=== PATIENT | male | born 1970 | race African-American/Black ===

== ENCOUNTER 2018-10-14 15:38 | Inpatient (IN) | payer OTHER ==
[2018-10-14 15:48] VITALS: BMI 26.7
--- NOTE | 2018-10-14 17:47 | HP ---
CIWA Score - Admission Criteria [facility] Guidelines: Admission for Medically Managed Detox: Requires at least one of the followin. CIWA greater than 12 2. Seizures within the past 24 hours 3. Delirium tremens within the past 24 hours 4. Hallucinations within the past 24 hours 5. Acute intervention needed for co occurring medical disorder 6. Acute intervention needed for co occurring psychiatric disorder 7. Severe withdrawal that cannot be handled at a lower level of care (continued vomiting, continued diarrhea, abnormal vital signs) requiring intravenous medication and/or fluids 8. Admission ROS S - HPI Chief Complaint: SEEKING REHAB SERVICES Allergies/Adverse Reactions: Allergies Allergy/AdvReac Type Severity Reaction Status Date / Time No Known Allergies Allergy Verified 10/14/18 17:39 History of Present Illness: 48 Y.O. MAN WITH A 20 YEAR HISTORY OF CRACK-COCAINE DEPENDENCE IS HERE SEEKING REHAB SERVICES. THIS IS HIS FIRST ADMISSION HERE BUT REPORTS HE COMPLETED REHAB 3 YEARS AGO AT ANOTHER FACILITY IN [place]. Exam Limitations: No Limitations - Ebola screening Have you traveled outside of the country in the last 21 days: No Have you had contact with anyone from an Ebola affected area: No Have you been sick,other than usual withdrawal symptoms: No Do you have a fever: No - Review of Systems Constitutional: Loss of Appetite, Unintentional Wgt. Loss EENT: reports: No Symptoms Reported Respiratory: reports: No Symptoms reported Cardiac: reports: No Symptoms Reported GI: reports: No Symptoms Reported : reports: No Symptoms Reported Musculoskeletal: reports: No Symptoms Reported Integumentary: reports: No Symptoms Reported Neuro: reports: No Symptoms reported Endocrine: reports: No Symptoms Reported Hematology: reports: Other (SICKLE CELL TRAIT) Psychiatric: reports: Orientated x3 Other Systems: Reviewed and Negative Patient History - Patient Medical History Hx Anemia: No (SICKLE CELL TRAIT ) Hx Asthma: Yes Hx Chronic Obstructive Pulmonary Disease (COPD): No Hx Cancer: No Hx Cardiac Disorders: No Hx Congestive Heart Failure: No Hx Hypertension: Yes (TAKES LISINOPRIL ) Hx Hypercholesterolemia: No Hx Pacemaker: No HX Cerebrovascular Accident: No Hx Seizures: No Hx Dementia: No Hx Diabetes: No Hx Gastrointestinal Disorders: No Hx Liver Disease: No Hx Genitourinary Disorders: No Hx Sexually Transmitted Disorders: No Hx Renal Disease (ESRD): No Hx Thyroid Disease: No Hx Human Immunodeficiency Virus (HIV): Yes (DX 2001) Hx Hepatitis C: Yes Hx Depression: No Hx Suicide Attempt: No Hx Bipolar Disorder: No Hx Schizophrenia: No - Patient Surgical History Past Surgical History: Yes Other Surgical History: W-1989 & 2011 Anesthesia Reaction: No - PPD History Previous Implant?: Yes Documented Results: Negative w/o proof PPD to be Administered?: Yes - Reproductive History Patient is a Female of Child Bearing Age (11 -55 yrs old): No - Smoking Cessation Smoking history: Current every day smoker Have you smoked in the past 12 months: Yes Aproximately how many cigarettes per day: 2 Initiated information on smoking cessation: Yes 'Breaking Loose' booklet given: 10/14/18 - Substance & Tx. History Hx Alcohol Use: No Hx Substance Use: Yes Substance Use Type: Cocaine Hx Substance Use Treatment: Yes (Rehab: 2 years ago ) - Substances Abused Crack Route: Smoking Frequency: Daily Amount used: $300 Age of first use: 31 Date of Last Use: 10/14/18 Family Disease History - Family Disease History Family Disease History: Other: Father (HEROIN DEPENDENCE- ) Admission Physical Exam S - Vital Signs Vital Signs: Vital Signs - 24 hr 10/14/18 15:46 Temperature 98.1 F Pulse Rate 79 Respiratory 20 Rate Blood Pressure 159/110 H - Physical General Appearance: Yes: No Apparent Distress, Nourished, Appropriately Dressed HEENTM: Yes: Hearing grossly Normal, Normocephalic, Normal Voice Respiratory: Yes: Chest Non-Tender, Lungs Clear, Normal Breath Sounds, No Respiratory Distress, No Accessory Muscle Use Neck: Yes: Within Normal Limits, No masses,lesions,Nodules Breast: Yes: Breast Exam Deferred Cardiology: Yes: Regular Rhythm, Regular Rate Abdominal: Yes: Normal Bowel Sounds, Non Tender, Flat, Soft Genitourinary: Yes: Other (NO COMPLAINTS REPORTED) Back: Yes: Normal Inspection Musculoskeletal: Yes: full range of Motion, Gait Steady, Pelvis Stable Extremities: Yes: Normal Inspection, Normal Range of Motion, Non-Tender Neurological: Yes: engineer second assistant II-XII NML intact, Fully Oriented, Alert, Normal Mood/ Affect, Normal Response Integumentary: Yes: Normal Color, Dry, Warm Lymphatic: Yes: Within Normal Limits - Diagnostic (1) HIV (human immunodeficiency virus infection) Current Visit: Yes Status: Chronic (2) Hypertension Current Visit: Yes Status: Chronic (3) Nicotine dependence Current Visit: Yes Status: Chronic (4) Cocaine dependence Current Visit: Yes Status: Chronic (5) Asthma Current Visit: Yes Status: Chronic (6) Decreased appetite Current Visit: Yes Status: Acute (7) HCV (hepatitis C virus) Current Visit: Yes Status: Chronic (8) Sickle cell trait Current Visit: Yes Status: Chronic Cleared for Admission S - Detox or Rehab [facility] Level of Care: Observation Bed Detox Regimen/Protocol: Not Applicable Claeared for Rehab Admission: Yes [facility] Breath Alcohol Content Breath Alcohol Content: 0 Urine Drug Screen - Results Drug Screen Negative: No Urine Drug Screen Results: [facility] Inpatient Rehab Admission - Initial Determination Are CD services needed?: Yes Free of communicable disease: No Not in need of hospitalization: Yes - Rehab Admission Criteria Previous failed treatment: Yes Poor recovery environment: Yes Comorbidities: Yes Lacks judgement: Yes Patient is meeting Inpatient Rehab admission criteria:: Yes
[2018-10-14] MEDS ORDERED: LOPERAMIDE HCL 2 MG CAPSULE PO PRN (17:56)
[2018-10-14] MEDS ORDERED: MENTHOL/PHENOL 1 EACH UD MM PRN (17:56)
[2018-10-14] MEDS ORDERED: hydrOXYzine PAMOATE 25 MG CAPSULE (FP) PO PRN (17:56)
[2018-10-14] MEDS ORDERED: MAGNESIUM CITRATE 300 ML BOTTLE PO PRN (17:56)
[2018-10-14] MEDS ORDERED: guaiFENesin/D-METHORPHAN HB 10 ML UNIT-DOSE CUPS PO PRN (17:56)
[2018-10-14] MEDS ORDERED: ACETAMINOPHEN 325 MG TABLET (FP) PO PRN (17:56)
[2018-10-14] MEDS ORDERED: P-EPHED 60MG/TRIPROLIDI 2.5MG TABLET PO PRN (17:56)
[2018-10-14] MEDS ORDERED: MAGNESIUM HYDROX 2400MG/30ML ORAL SUSPENSION 30 ML CUP PO PRN (17:56)
[2018-10-14] MEDS ORDERED: MAG HYDROX/AL HYDROX/SIMETH 30 ML UNIT-DOSE CUP PO PRN (17:56)
[2018-10-14] MEDS ORDERED: IBUPROFEN 400 MG TABLET (FP) PO PRN (17:56)
[2018-10-14] MEDS: THIAMINE HCL 100 MG TABLET (FP) PO SCH (21:51)
[2018-10-15] MEDS: CYPROHEPTADINE HCL 4 MG TABLET PO SCH ×3 (06:38→17:42)
--- NOTE | 2018-10-15 09:08 | EKG ---
Test Reason : Blood Pressure : / mmHG Vent. Rate : 064 BPM Atrial Rate : 064 BPM P-R Int : 162 ms QRS Dur : 088 ms QT Int : 436 ms P-R-T Axes : 062 076 045 degrees QTc Int : 449 ms POOR DATA QUALITY, INTERPRETATION MAY BE ADVERSELY AFFECTED NORMAL SINUS RHYTHM NORMAL ECG NO PREVIOUS ECGS AVAILABLE Confirmed by JIGAR SULLIVAN MD ([id number]) on 10/15/2018 9:06:56 AM Referred By: Confirmed By:JIGAR SULLIVAN MD
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
[2018-10-15 10:18] LABS: URINE APPEARANCE CLEAR; URINE BILIRUBIN NEGATIVE (<2.0 mg/dL); URINE COLOR YELLOW; URINE GLUCOSE (UA) NEGATIVE (NEGATIVE); URINE KETONE NEGATIVE (NEGATIVE); URINE LEUK ESTERASE NEGATIVE (NEGATIVE); URINE NITRITE NEGATIVE (NEGATIVE); URINE PROTEIN 1+ (NEGATIVE); URINE UROBILINOGEN NEGATIVE mg/dL (0.2-1.0)
[2018-10-15] MEDS: PRENATAL VITAMINS W/ FOLIC ACID TABLET (FP) PO SCH (10:19)
[2018-10-15] MEDS: LISINOPRIL 10 MG TABLET (FP) PO SCH (10:19)
[2018-10-15] MEDS: DOLUTEGRAVIR SODIUM 50 MG TABLET (NON-FORMULARY) PO SCH (10:19)
[2018-10-15] MEDS: EMTRICITABINE/TENOFOV ALAFENAM (DESCOVY) TABLET PO SCH (10:19)
[2018-10-15 16:27] LABS: HEMATOCRIT 34.8 % (35.4-49); HEMOGLOBIN 12.2 GM/dL (11.7-16.9); MCH 32.1 pg (25.7-33.7); MCHC 35.1 g/dl (32.0-35.9); MEAN CELL VOLUME 91.5 fl (80-96); MEAN PLT VOLUME 8.1 fl (7.5-11.1); PLATELET COUNT 218 K/MM3 (134-434); RBC 3.81 M/mm3 (4.00-5.60); RDW 14.6 % (11.9-15.9); WHITE BLOOD COUNT 2.5 K/mm3 (4.0-10.0)
[2018-10-15 17:09] LABS: ALBUMIN 3.2 g/dl (3.4-5.0); ALK PHOS 65 U/L (45-117); ANION GAP 5 MMOL/L (8-16); BILIRUBIN,TOTAL 0.3 mg/dL (0.2-1); BLOOD UREA NITROGEN 22 mg/dL (7-18); CALCIUM 8.3 mg/dL (8.5-10.1); CHLORIDE 108 mmol/L (98-107); CO2 27 mmol/L (21-32); CREATININE 3.3 mg/dL (0.55-1.3); GLUCOSE,RANDOM 92 mg/dL (74-106); POTASSIUM 4.5 mmol/L (3.5-5.1); SGOT/AST 68 U/L (15-37); SGPT/ALT 70 U/L (13-61); SODIUM 140 mmol/L (136-145); TOT PROT 6.7 g/dl (6.4-8.2)
[2018-10-15] MEDS: THIAMINE HCL 100 MG TABLET (FP) PO SCH (21:51)
[2018-10-16] MEDS: CYPROHEPTADINE HCL 4 MG TABLET PO SCH ×3 (06:40→16:45)
[2018-10-16] MEDS: LISINOPRIL 10 MG TABLET (FP) PO SCH (09:59)
[2018-10-16] MEDS: EMTRICITABINE/TENOFOV ALAFENAM (DESCOVY) TABLET PO SCH (09:59)
[2018-10-16] MEDS: DOLUTEGRAVIR SODIUM 50 MG TABLET (NON-FORMULARY) PO SCH (09:59)
[2018-10-16] MEDS: PRENATAL VITAMINS W/ FOLIC ACID TABLET (FP) PO SCH (09:59)
[2018-10-16] MEDS: THIAMINE HCL 100 MG TABLET (FP) PO SCH (21:54)
[2018-10-17] MEDS: CYPROHEPTADINE HCL 4 MG TABLET PO SCH ×3 (07:02→16:37)
[2018-10-17] MEDS: EMTRICITABINE/TENOFOV ALAFENAM (DESCOVY) TABLET PO SCH (10:08)
[2018-10-17] MEDS: PRENATAL VITAMINS W/ FOLIC ACID TABLET (FP) PO SCH (10:08)
[2018-10-17] MEDS: LISINOPRIL 10 MG TABLET (FP) PO SCH (10:08)
[2018-10-17] MEDS: DOLUTEGRAVIR SODIUM 50 MG TABLET (NON-FORMULARY) PO SCH (10:08)
[2018-10-17] MEDS: THIAMINE HCL 100 MG TABLET (FP) PO SCH (22:12)
[2018-10-18] MEDS: CYPROHEPTADINE HCL 4 MG TABLET PO SCH ×3 (06:53→16:43)
[2018-10-18] MEDS: LISINOPRIL 10 MG TABLET (FP) PO SCH (10:38)
[2018-10-18] MEDS: PRENATAL VITAMINS W/ FOLIC ACID TABLET (FP) PO SCH (10:38)
[2018-10-18] MEDS: DOLUTEGRAVIR SODIUM 50 MG TABLET (NON-FORMULARY) PO SCH (10:39)
[2018-10-18] MEDS: EMTRICITABINE/TENOFOV ALAFENAM (DESCOVY) TABLET PO SCH (10:39)
[2018-10-18] MEDS: THIAMINE HCL 100 MG TABLET (FP) PO SCH (22:50)
[2018-10-19] MEDS: CYPROHEPTADINE HCL 4 MG TABLET PO SCH ×3 (08:02→16:45)
[2018-10-19] MEDS: EMTRICITABINE/TENOFOV ALAFENAM (DESCOVY) TABLET PO SCH (10:46)
[2018-10-19] MEDS: PRENATAL VITAMINS W/ FOLIC ACID TABLET (FP) PO SCH (10:46)
[2018-10-19] MEDS: LISINOPRIL 10 MG TABLET (FP) PO SCH (10:46)
[2018-10-19] MEDS: DOLUTEGRAVIR SODIUM 50 MG TABLET (NON-FORMULARY) PO SCH (10:46)
[2018-10-19] MEDS: THIAMINE HCL 100 MG TABLET (FP) PO SCH (22:04)
[2018-10-20] MEDS: CYPROHEPTADINE HCL 4 MG TABLET PO SCH ×3 (08:37→16:58)
[2018-10-20] MEDS: PRENATAL VITAMINS W/ FOLIC ACID TABLET (FP) PO SCH (10:47)
[2018-10-20] MEDS: LISINOPRIL 10 MG TABLET (FP) PO SCH (10:47)
[2018-10-20] MEDS: DOLUTEGRAVIR SODIUM 50 MG TABLET (NON-FORMULARY) PO SCH (10:48)
[2018-10-20] MEDS: EMTRICITABINE/TENOFOV ALAFENAM (DESCOVY) TABLET PO SCH (10:48)
[2018-10-20] MEDS: THIAMINE HCL 100 MG TABLET (FP) PO SCH (22:04)
[2018-10-21] MEDS: CYPROHEPTADINE HCL 4 MG TABLET PO SCH ×3 (07:18→17:29)
[2018-10-21] MEDS: EMTRICITABINE/TENOFOV ALAFENAM (DESCOVY) TABLET PO SCH (10:38)
[2018-10-21] MEDS: PRENATAL VITAMINS W/ FOLIC ACID TABLET (FP) PO SCH (10:38)
[2018-10-21] MEDS: DOLUTEGRAVIR SODIUM 50 MG TABLET (NON-FORMULARY) PO SCH (10:38)
[2018-10-21] MEDS: LISINOPRIL 10 MG TABLET (FP) PO SCH (10:38)
[2018-10-21] MEDS: THIAMINE HCL 100 MG TABLET (FP) PO SCH (22:05)
[2018-10-21] MEDS: MELATONIN 5 MG TABLETS PO PRN (22:06)
[2018-10-22] MEDS: CYPROHEPTADINE HCL 4 MG TABLET PO SCH ×3 (06:50→16:52)
[2018-10-22] MEDS: LISINOPRIL 10 MG TABLET (FP) PO SCH (11:06)
[2018-10-22] MEDS: PRENATAL VITAMINS W/ FOLIC ACID TABLET (FP) PO SCH (11:06)
[2018-10-22] MEDS: DOLUTEGRAVIR SODIUM 50 MG TABLET (NON-FORMULARY) PO SCH (11:07)
[2018-10-22] MEDS: EMTRICITABINE/TENOFOV ALAFENAM (DESCOVY) TABLET PO SCH (11:08)
[2018-10-22] MEDS: THIAMINE HCL 100 MG TABLET (FP) PO SCH (21:55)
[2018-10-22] MEDS: MELATONIN 5 MG TABLETS PO PRN (21:55)
[2018-10-23] MEDS: CYPROHEPTADINE HCL 4 MG TABLET PO SCH ×3 (06:56→16:53)
[2018-10-23] MEDS: LISINOPRIL 10 MG TABLET (FP) PO SCH (10:31)
[2018-10-23] MEDS: PRENATAL VITAMINS W/ FOLIC ACID TABLET (FP) PO SCH (10:31)
[2018-10-23] MEDS: EMTRICITABINE/TENOFOV ALAFENAM (DESCOVY) TABLET PO SCH (10:32)
[2018-10-23] MEDS: DOLUTEGRAVIR SODIUM 50 MG TABLET (NON-FORMULARY) PO SCH (10:32)
[2018-10-23] MEDS: THIAMINE HCL 100 MG TABLET (FP) PO SCH (23:37)
[2018-10-24] MEDS: CYPROHEPTADINE HCL 4 MG TABLET PO SCH ×3 (06:44→16:35)
[2018-10-24] MEDS: DOLUTEGRAVIR SODIUM 50 MG TABLET (NON-FORMULARY) PO SCH (10:26)
[2018-10-24] MEDS: PRENATAL VITAMINS W/ FOLIC ACID TABLET (FP) PO SCH (10:26)
[2018-10-24] MEDS: LISINOPRIL 10 MG TABLET (FP) PO SCH (10:26)
[2018-10-24] MEDS: EMTRICITABINE/TENOFOV ALAFENAM (DESCOVY) TABLET PO SCH (10:26)
[2018-10-24] MEDS: THIAMINE HCL 100 MG TABLET (FP) PO SCH (22:31)
[2018-10-25] MEDS: CYPROHEPTADINE HCL 4 MG TABLET PO SCH ×3 (08:26→16:49)
[2018-10-25] MEDS: LISINOPRIL 10 MG TABLET (FP) PO SCH (11:26)
[2018-10-25] MEDS: PRENATAL VITAMINS W/ FOLIC ACID TABLET (FP) PO SCH (11:26)
[2018-10-25] MEDS: EMTRICITABINE/TENOFOV ALAFENAM (DESCOVY) TABLET PO SCH (11:27)
[2018-10-25] MEDS: DOLUTEGRAVIR SODIUM 50 MG TABLET (NON-FORMULARY) PO SCH (11:27)
[2018-10-25] MEDS: MELATONIN 5 MG TABLETS PO PRN (21:51)
[2018-10-25] MEDS: THIAMINE HCL 100 MG TABLET (FP) PO SCH (21:51)
[2018-10-26] MEDS: EMTRICITABINE/TENOFOV ALAFENAM (DESCOVY) TABLET PO SCH (10:32)
[2018-10-26] MEDS: CYPROHEPTADINE HCL 4 MG TABLET PO SCH ×3 (10:33→16:43)
[2018-10-26] MEDS: PRENATAL VITAMINS W/ FOLIC ACID TABLET (FP) PO SCH (10:33)
[2018-10-26] MEDS: LISINOPRIL 10 MG TABLET (FP) PO SCH (10:33)
[2018-10-26] MEDS: DOLUTEGRAVIR SODIUM 50 MG TABLET (NON-FORMULARY) PO SCH (10:33)
[2018-10-26] MEDS: THIAMINE HCL 100 MG TABLET (FP) PO SCH (21:58)
[2018-10-26] MEDS: MELATONIN 5 MG TABLETS PO PRN (21:58)
[2018-10-27] MEDS: CYPROHEPTADINE HCL 4 MG TABLET PO SCH ×3 (07:07→16:37)
[2018-10-27] MEDS: LISINOPRIL 10 MG TABLET (FP) PO SCH (10:15)
[2018-10-27] MEDS: DOLUTEGRAVIR SODIUM 50 MG TABLET (NON-FORMULARY) PO SCH (10:15)
[2018-10-27] MEDS: PRENATAL VITAMINS W/ FOLIC ACID TABLET (FP) PO SCH (10:15)
[2018-10-27] MEDS: EMTRICITABINE/TENOFOV ALAFENAM (DESCOVY) TABLET PO SCH (10:16)
--- NOTE | 2018-10-27 13:48 | PN ---
Psychiatric Progress Note Vital Signs: Vital Signs Period Temp Pulse Resp BP Sys/S[place] Pulse Ox Last 24 Hr 97.8 F 62 16-18 132/66 Date of Session: 10/27/18 Chief Complaint:: Discharge Note HPI: Patient addressing Cocaine Dependence comorbid with Nicotine dependence and Substance-Induced Sleep Disorder ROS: Asthma, HIV, HCV, HTN, Sickle cell trait were medically managed Current Medications: Active Medications Generic Name Dose Route Start Last Admin Trade Name Freq PRN Reason Stop Dose Admin Acetaminophen 650 mg 10/14/18 17:56 Tylenol - PO Q4H PRN FEVER Al Hydroxide/Mg Hydroxide 30 ml 10/14/18 17:56 Mylanta Oral Suspension - PO Q6H PRN DYSPEPSIA Cyproheptadine HCl 4 mg 10/15/18 07:00 10/27/18 11:53 Periactin - PO 4 mg TIDAC MYRNA Administration Eucalyptus/Menthol/Phenol/Sorbitol 1 each 10/14/18 17:56 Cepastat Lozenge - MM Q4H PRN SORE THROAT Guaifenesin 10 ml 10/14/18 17:56 Robitussin Dm - PO Q6H PRN COUGH Hydroxyzine Pamoate 25 mg 10/14/18 17:56 Vistaril - PO Q4H PRN AGITATION Ibuprofen 400 mg 10/14/18 17:56 Motrin - PO Q6H PRN Pain level 4-6 Lisinopril 10 mg 10/15/18 10:00 10/27/18 10:15 Prinivil PO 10 mg DAILY MYRNA Administration Loperamide HCl 4 mg 10/14/18 17:56 Imodium - PO Q6H PRN DIARRHEA Magnesium Citrate 300 ml 10/14/18 17:56 Citroma - PO Q48H PRN CONSTIPATION Magnesium Hydroxide 30 ml 10/14/18 17:56 Milk Of Magnesia - PO DAILY PRN CONSTIPATION Melatonin 5 mg 10/14/18 22:00 10/26/18 21:58 Melatonin PO 5 mg HS PRN Administration INSOMNIA Multivit/Folic Acid/Iron 1 tab 10/15/18 10:00 10/27/18 10:15 Vitamins (Sjr) - PO 1 tab DAILY MYRNA Administration Pseudoephedrine/Triprolidine 1 combo 10/14/18 17:56 Actifed - PO TID PRN NASAL CONGESTION Thiamine HCl 100 mg 10/14/18 22:00 10/26/18 21:58 Vitamin B1 - PO 100 mg HS MYRNA Administration Current Side Effect: No Lab tests ordered: Yes Lab tests reviewed: Yes Provider note:: Patient will complete this program on 10/28/18. He has met his treatment goals and will continue to address his issues in outpatient treatment at [facility] at [address] [place] [address]. Told selling underwriter that from his participation in this program, he has learned that identify his triggers and better ways to avoid them. He is stable for discharge on 10/28/18 Total face to face time:: 35 Psychiatric Treatment Plan - Problem List (1) Cocaine dependence Current Visit: Yes (2) Nicotine dependence Current Visit: Yes (3) Substance-induced sleep disorder Current Visit: Yes (4) Asthma Current Visit: Yes (5) HCV (hepatitis C virus) Current Visit: Yes (6) HIV (human immunodeficiency virus infection) Current Visit: Yes (7) Hypertension Current Visit: Yes (8) Sickle cell trait Current Visit: Yes Initial treatment plan: Patient will be discharged tomorrow and referred to [facility] for outpatient treatment
[2018-10-27] MEDS: THIAMINE HCL 100 MG TABLET (FP) PO SCH (21:41)
[2018-10-27] MEDS: MELATONIN 5 MG TABLETS PO PRN (21:41)
[2018-10-28] MEDS: CYPROHEPTADINE HCL 4 MG TABLET PO SCH (06:43)
[2018-10-28 07:15] VITALS: TEMP 97.6
--- NOTE | 2018-10-28 09:56 | PN ---
[facility] Progress Note Note: PT IS FOR DISCHARGE TODAY. REHAB COMPLETED. ALERT O X 3. PT HAS A PCP DELIA WARREN. PT HAS REFILLS LEFT ON HIS RX BOTTLES. PT WILL FOLLOW UP AT HIS [facility] FOR REFILL OF HIS MEDS. PT REPORTS HE IS GOING TO [facility] FOR AFTERCARE. Vital Signs 10/28/18 10/28/18 03:30 07:14 Temperature 97.6 F Pulse Rate 65 Respiratory 18 18 Rate Blood Pressure 110/71 Laboratory Tests 10/14/18 10/15/18 10/15/18 08:00 09:36 09:36 WBC 2.5 L RBC 3.81 L Hgb 12.2 Hct 34.8 L MCV 91.5 MCH 32.1 MCHC 35.1 RDW 14.6 Plt Count 218 MPV 8.1 Sodium 140 Potassium 4.5 Chloride 108 H Carbon Dioxide 27 Anion Gap 5 L BUN 22 H Creatinine 3.3 H Creat Clearance w eGFR 20.03 Random Glucose 92 Calcium 8.3 L Total Bilirubin 0.3 AST 68 H ALT 70 H Alkaline Phosphatase 65 Total Protein 6.7 Albumin 3.2 L Urine Color Yellow Urine Appearance Clear Urine pH 5.0 Ur Specific [place] 1.014 Urine Protein 1+ H Urine Glucose (UA) Negative Urine Ketones Negative Urine Blood Negative Urine Nitrite Negative Urine Bilirubin Negative Urine Urobilinogen Negative Ur Leukocyte Esterase Negative Urine WBC (Auto) 1 Urine RBC (Auto) 2 RPR Titer 10/15/18 09:36 WBC RBC Hgb Hct MCV MCH MCHC RDW Plt Count MPV Sodium Potassium Chloride Carbon Dioxide Anion Gap BUN Creatinine Creat Clearance w eGFR Random Glucose Calcium Total Bilirubin AST ALT Alkaline Phosphatase Total Protein Albumin Urine Color Urine Appearance Urine pH Ur Specific [place] Urine Protein Urine Glucose (UA) Urine Ketones Urine Blood Urine Nitrite Urine Bilirubin Urine Urobilinogen Ur Leukocyte Esterase Urine WBC (Auto) Urine RBC (Auto) RPR Titer Nonreactive NAD MARCO A HX HIV+ HTN PLAN:F/O WITH DELIA GASPAR AT [phone] WITHIN 1 WEEK AFTER DISCHARGE FOR MEDICAL MANAGEMENT OF COMORBID CONDITIONS. FOLLOW UP WITH AFTERCARE RECOMMENDATIONS.
[2018-10-28] MEDS: EMTRICITABINE/TENOFOV ALAFENAM (DESCOVY) TABLET PO SCH (09:59)
[2018-10-28] MEDS: PRENATAL VITAMINS W/ FOLIC ACID TABLET (FP) PO SCH (09:59)
[2018-10-28] MEDS: LISINOPRIL 10 MG TABLET (FP) PO SCH (09:59)
[2018-10-28] MEDS: DOLUTEGRAVIR SODIUM 50 MG TABLET (NON-FORMULARY) PO SCH (09:59)
[2018-10-28 10:16] VITALS: BP 130/69; PULSE 69
== END 2018-10-28 10:05 | disposition home or self-care (01) | DRG 772 ==
LOC: YASAS 15:38 → Y5N 18:42
PROVIDERS: ADMIT Psychiatry & Neurology Psychiatry; ATTEND Psychiatry & Neurology Psychiatry
PROC: HZ42ZZZ Group Counseling for Substance Abuse Treatment, Cognitive-Behavioral (ICD-10-PCS; principal; 2018-10-14)
DX: F14.20 Cocaine dependence, uncomplicated (principal); F17.210 Nicotine dependence, cigarettes, uncomplicated; F19.282 Other psychoactive substance dependence with psychoactive substance-induced sleep disorder; I10 Essential (primary) hypertension; J45.909 Unspecified asthma, uncomplicated; B18.2 Chronic viral hepatitis C; Z21 Asymptomatic human immunodeficiency virus [HIV] infection status; D57.3 Sickle-cell trait; R63.0 Anorexia
CPT/HCPCS: 36415; 80053; 81003; 81015; 85027; 86593; 93005; 93010